=== PATIENT | male | born 1935 | race Caucasian/White ===

== ENCOUNTER → 2020-09-16 15:25 | Outpatient (CLI) | payer MEDICARE, OTHER, SELFPAY ==
[2020-09-16 15:37] LABS: Bacteria 0 SEEN /hpf (None Seen); White Blood Cells 0 SEEN /hpf (0-5)
[2020-09-16 18:13] LABS: Absolute Lymphocyte Count 0.74 X10^3/uL (0.83-4.51); Absolute Neutrophil Count 13.3 X10^3/uL (2.0-7.7); Basophil# 0.02 X10^3/uL; Basophil% 0.1 % (0-1); Hematocrit 45.9 % (40-54); Hemoglobin 16.1 g/dL (13.0-16.5); Lymphocyte # 0.74 X10^3/ul (0.83-4.51); Lymphocyte % 4.8 % (19-41); Mean Corp Hgb Conc 35.1 g/dL (32-36); Mean Corpuscular Hgb 31.1 pg (27.0-32.0); Mean Corpuscular Volume 88.6 fL (80-94); Mean Platelet Vol. 10.3 fl (6.2-12.0); Monocyte# 1.25 X10^3/uL; Monocyte% 8.2 % (0-10); NRBC Flagged by Analyzer 0 % (0-5); Neutrophil # 13.25 X10^3/uL (2.7-7.7); Neutrophil % 86.5 % (47-70); Platelet Count 220 K/mm3 (150-450); RBC Distribution Width CV 13.5 % (11.6-14.6); RBC Distribution Width SD 44.1 fl (35.1-43.9); Red Blood Count 5.18 M/mm3 (4.6-6.2); White Blood Count 15.3 K/mm3 (4.4-11.0)
[2020-09-16 18:15] LABS: Color, Urine Yellow (Yellow); Glucose, Dipstick Normal (Normal); Ketone-Dipstick 15 mg/dl (Negative); Leukocyte Esterase-Dipstick 25 /ul (Negative); Nitrite-Dipstick Negative (Negative); Occult Blood-Urine 25 /ul (Negative); Protein-Dipstick 30 mg/dl (Negative); Urine Bilirubin Dipstick Negative (Negative); Urine Clarity Clear (Clear); Urine Urobilinogen 1 mg/dl (Normal)
[2020-09-16 18:24] LABS: Mucous, Urine 2+ /hpf (<or=2+); Red Blood Cells-Urine 0-5 SEEN /hpf (0-5); Squamous Epithelial Cells - UA 0-5 SEEN /hpf (0-5)
[2020-09-16 18:38] LABS: ALB/GLOB Ratio 1.2 RATIO (0.9-2.4); AST(SGOT) 20 U/L (15-37); Alanine Aminotransfer ALT/SGPT 25 U/L (16-61); Albumin, Serum 4.2 g/dL (3.2-5.0); Alkaline Phosphatase 63 U/L (45-117); Amylase 20 U/L (25-115); Anion Gap 11 (5-15); BUN 17 mg/dL (7-18); BUN/Creat Ratio 20.6 RATIO (10-20); Calcium,Total 9.3 mg/dL (8.5-10.1); Chloride 103 mmol/L (98-107); Creatinine, Serum 0.82 mg/dL (0.70-1.30); EST Glomerular Filtration Rate 95 mL/min (>60); Est Glom Filt Rate - Afr Amer 115 mL/min (>60); Globulin 3.4 g/dL (2.2-4.2); Glucose 134 mg/dL (74-106); Lipase 65 U/L (73-393); Potassium 3.9 mmol/L (3.5-5.1); Protein, Total 7.6 g/dL (6.4-8.2); Sodium Level 134 mmol/L (136-145)
[2020-09-16 18:43] LABS: Erythrocyte Sedimentation Rate 10 mm/hr (0-20)
== END ==
PROVIDERS: PCP Internal Medicine; Referring Provider Internal Medicine; Visit Provider Internal Medicine
DX: R10.84 Generalized abdominal pain (principal)
CPT/HCPCS: 36415; 80053; 81001; 82150; 83690; 85025; 85652

== ENCOUNTER 2020-09-18 05:41 | Inpatient (IN) | payer MEDICARE, OTHER, SELFPAY ==
[2020-09-18] VITALS (15 sets, daily range): BP systolic 116–143; BP diastolic 55–82; PULSE 86–108; RESP 16–18; TEMP 35.7–36.9; O2SAT 91–96; BMI 25.4
--- NOTE | 2020-09-18 05:42 | CT_ITS ---
We are attempting to reach an attending provider to discuss findings. An addendum with communication details will be sent when the communication is complete. HISTORY: SBO TECHNIQUE: Multiple axial images were obtained of the abdomen and pelvis without oral or IV contrast. Coronal and sagittal reformats obtained. A radiation dose optimization technique was used for this scan. COMPARISON: Left abdominal radiograph 09/16/2020 FINDINGS: # of images incl. paperwork: 531 LUNG BASES: Unremarkable. LIVER T BILIARY TRACT: Cholelithiasis without gallbladder distention or surrounding inflammation. Left hepatic cysts up to 2.1 cm in size. ADRENAL GLANDS: Unremarkable. SPLEEN: Calcified sequela of prior granulomatous disease. PANCREAS: Unremarkable. KIDNEYS/URETERS/BLADDER: Left renal 4.4 cm exophytic cyst. Nonobstructive 2- 3 mm bilateral renal stones. No hydronephrosis or perinephric inflammation. Unremarkable ureters and bladder. LYMPH NODES: No suspicious adenopathy. STOMACH, SMALL AND LARGE BOWEL: No acute gastric finding. Large left inguinal hernia containing small bowel and fat with mild inflammatory stranding. Distention of small proximal to entering the hernia up to 4.4 cm. Distention of small bowel within the hernia to 3.2 cm with decompression prior to exiting. Appendix is not seen. No right lower quadrant inflammatory change to suggest appendicitis. No acute colonic finding. No pneumatosis. ASCITES/FREE AIR: No free fluid or free air. AORTA: Atherosclerosis without ectasia. PELVIS: Prostate 5.6 cm transverse. MUSCULOSKELETAL: No acute osseous finding. Small fat-containing right inguinal hernia without inflammation. Left iliac bone island. CT/Abdomen/Pelvis without Cont IMPRESSION: Small bowel obstruction proximal to small bowel entering a large left inguinal hernia. Distention of small bowel with mild inflammation within left inguinal hernia concerning for incarceration and closed loop obstruction. Recommend surgical consultation. Nonobstructive nephrolithiasis. Cholelithiasis. Individualized dose optimization techniques were used for this CT. at 0644 Reported and signed by: Jah Garner MD Electronically Signed: Jah Garner MD at 6:42 EDT Tel , Service support ,
[2020-09-18] MEDS: 0.9% Normal Saline 1,000 ML 1000 ML IV (05:48)
[2020-09-18] MEDS: Ondansetron 4 MG/2 ML Vial IV ×2 (05:48→12:37)
[2020-09-18 05:52] LABS: Absolute Lymphocyte Count 0.71 X10^3/uL (0.83-4.51); Absolute Neutrophil Count 6.8 X10^3/uL (2.0-7.7); Basophil# 0.05 X10^3/uL; Basophil% 0.5 % (0-1); Eosinophil# 0.06 X10^3/uL; Eosinophils% 0.6 % (0-5); Hematocrit 48.5 % (40-54); Hemoglobin 16.7 g/dL (13.0-16.5); Lymphocyte # 0.71 X10^3/ul (0.83-4.51); Mean Corp Hgb Conc 34.4 g/dL (32-36); Mean Corpuscular Hgb 30.8 pg (27.0-32.0); Mean Corpuscular Volume 89.5 fL (80-94); Mean Platelet Vol. 9.9 fl (6.2-12.0); Monocyte# 2.43 X10^3/uL; NRBC Flagged by Analyzer 0 % (0-5); Neutrophil # 6.82 X10^3/uL (2.7-7.7); Neutrophil % 67.4 % (47-70); POSITIVE DIFFERENTIAL YES; POSITIVE MORPHOLOGY YES; Platelet Count 237 K/mm3 (150-450); RBC Distribution Width CV 13.7 % (11.6-14.6); RBC Distribution Width SD 44.7 fl (35.1-43.9); Red Blood Count 5.42 M/mm3 (4.6-6.2); White Blood Count 10.1 K/mm3 (4.4-11.0)
--- NOTE | 2020-09-18 05:53 | EDS_ITS ---
HPI HPI - GI History of Present Illness Chief Complaint: Nausea/Vomiting Narrative Narrative: Patient presenting for evaluation secondary to some abdominal discomfort nausea and vomiting. Patient states that on Tuesday of this week he started having nausea and vomiting. He was having a couple episodes per day. Saw his primary care had laboratory work-up and an x-ray, he has not received results of that yet but they recommended that he come to the emergency d epartment. Patient states that he has not vomited since last night, it is nonbloody. He states that he has been dealing with some constipation and decreased flatus. He reports some intermittent crampy abdominal pain, nothing currently. Denies any fevers. He does have a history of multiple abdominal surgeries in the past. Review of systems otherwise negative. [facility] Medical History (Updated 09/18/20 @ 07:[address] Art Jack MD) High cholesterol History of spontaneous rupture of esophagus Hypertension Home Medications ascorbic acid (vitamin C) [Didi Hips (vitamin C)] 100 mg PO DAILY 09/18/20 [History Last Taken Unknown] aspirin 81 mg PO DAILY 09/18/20 [History Last Taken Unknown] calcium carbonate-vitamin D2 [Calcium + Vitamin D] 1 tab PO DAILY 09/18/20 [History Last Taken Unknown] flaxseed 1,000 mg PO DAILY 09/18/20 [History Last Taken Unknown] nortriptyline 25 mg PO QHS 09/18/20 [History Last Taken Unknown] olmesartan [Benicar] 40 mg PO DAILY 09/18/20 [History Last Taken Unknown] omega 9-tbg-gjv-fish oil [Fish Oil] 1 cap PO DAILY 09/18/20 [History Last Taken Unknown] rosuvastatin 20 mg PO DAILY 09/18/20 [History Last Taken Unknown] tamsulosin 0.4 mg PO QHS 09/18/20 [History Last Taken Unknown] Allergy/AdvReac Type Severity Reaction Status Date / Time No Known Allergies Allergy Verified 09/18/20 05:48 Surgical History History of appendectomy History of hernia repair Social History Smoking Status: Former smoker ROS ROS ED Constitutional Constitutional ED: Denies chills or fever(s) ENT ENT ED: Denies sore throat Cardiovascular Cardiovascular: Denies chest pain Respiratory/Chest Respiratory/Chest: Denies cough or dyspnea Gastrointestinal Gastrointestinal: Reports abdominal pain, constipation, nausea and vomiting; Denies diarrhea Genitourinary Genitourinary ED: Denies dysuria, hematuria or urinary frequency Musculoskeletal Musculoskeletal: Denies myalgias Integumentary Denies rash Neurologic Neurologic: Denies paresthesias or weakness Psychiatric Psychiatric: Denies depression Endocrine Endocrinology: Denies polyuria Hematologic/Lymphatic Hematologic/Lymphatic: Denies easy bleeding or easy bruising Allergic/Immunologic Allergic/Immunologic ED: Denies urticaria EXAM Physical Exam Const Vital Signs: 09/18/20 05:42 Temperature 96.3 F L Temperature Source Temporal Pulse Rate 108 H Respiratory Rate 16 Blood Pressure 140/82 H Blood Pressure Mean 101 Pulse Ox 94 Oxygen Delivery Method Room Air Positive well nourished and well developed General Appearance ED: well developed and NAD HEENT Reports dry mucous membranes normocephalic and atraumatic Mouth ED: Yes dry mucous membranes Mouth: dry mucous membranes Eyes EOMs intact bilaterally General Eye ED: Negative for pale conjunctiva or scleral icterus Neck no lymphadenopathy and supple Resp clear to auscultation bilaterally Resp Narrative: Mild tachypnea Cardio regular rhythm, no murmurs and peripheral pulses 2+ throughout Cardio Narrative: 2+ radial pulses bilaterally symmetric Rate: tachycardic GI non-tender, non-distended and no masses GI Narrative: No increased tympany noted Palpation: soft; Negative for guarding, rigid or rebound tenderness present Narrative: Very large left-sided inguinal hernia that is not necessarily tender to palpation no overlying skin changes Back/Spine no CVA tenderness Extremity full ROM General Extremety ED: Negative for edema General Extremity: Negative for edema Neuro moves all extremities and no sensory deficits noted Sensorium / Orientation: alert, oriented to person, oriented to place and oriented to time Motor Exam: strength 5/5 throughout Psych mental status grossly normal Skin Rashes: no rashes MDM MDM MDM Narrative Medical decision making narrative: Patient presented with abdominal pain nausea and vomiting. I reviewed the patient's prior records, his abdominal x-ray does shows bowel distention with air-fluid levels. As well as having a white blood cell count of 15,000. IV was established laboratory studies were obtained. Patient had improvement of his white blood cell count down to 10,000. Chemistry shows normal renal function no significant electrolyte derangements lactic acid was modestly elevated at 3.0. CT abdomen and pelvis was performed which shows a small bowel obstruction just proximal to where the small bowel enters a large left inguinal hernia as well as showing inflammation within the hernia concerning for incarceration and a closed-loop obstruction. I discussed this with Dr. Zacarias, surgery who will evaluate the patient at the bedside. Patient will be admitted for surgical intervention. Lab Data Labs: Laboratory Results - last 24 hr 09/18/20 09/18/20 09/18/20 05:45 05:45 05:45 WBC 10.1 RBC 5.42 Hgb 16.7 H Hct 48.5 MCV 89.5 MCH 30.8 MCHC 34.4 RDW Std Deviation 44.7 H RDW Coeff of Lynette 13.7 Plt Count 237 MPV 9.9 Immature Gran % (Auto) 0.500 Neut % (Auto) 67.4 Lymph % (Auto) 7.0 L Villalba % (Auto) 24.0 H Eos % (Auto) 0.6 Baso % (Auto) 0.5 Absolute Neuts (auto) 6.8 Absolute Lymphs (auto) 0.71 L Nucleated RBC % 0 Differential Comment SCANNED Sodium Cancelled Potassium Cancelled Chloride Cancelled Carbon Dioxide Cancelled Anion Gap Cancelled BUN Cancelled Creatinine Cancelled Estim Creat Clear Calc Cancelled Est GFR (MDRD) Af Amer Cancelled Est GFR (MDRD) Non-Af Cancelled BUN/Creatinine Ratio Cancelled Glucose Cancelled Lactic Acid Cancelled Calcium Cancelled Total Bilirubin Cancelled AST Cancelled ALT Cancelled Alkaline Phosphatase Cancelled Total Protein Cancelled Albumin Cancelled Globulin Cancelled Albumin/Globulin Ratio Cancelled Lipase Cancelled 09/18/20 09/18/20 06:05 06:18 WBC RBC Hgb Hct MCV MCH MCHC RDW Std Deviation RDW Coeff of Lynette Plt Count MPV Immature Gran % (Auto) Neut % (Auto) Lymph % (Auto) Villalba % (Auto) Eos % (Auto) Baso % (Auto) Absolute Neuts (auto) Absolute Lymphs (auto) Nucleated RBC % Differential Comment Sodium 134 L Potassium 4.1 Chloride 102 Carbon Dioxide 21.0 Anion Gap 11 BUN 39 H Creatinine 1.27 Estim Creat Clear Calc 46.30 Est GFR (MDRD) Af Amer 70 Est GFR (MDRD) Non-Af 58 L BUN/Creatinine Ratio 30.7 H Glucose 151 H Lactic Acid 3.0 H* Calcium 8.6 Total Bilirubin 1.30 H AST 33 ALT 40 Alkaline Phosphatase 61 Total Protein 7.1 Albumin 3.6 Globulin 3.5 Albumin/Globulin Ratio 1.0 Lipase 48 L Radiography Diagnostic Testing: Radiology Impression Abdomen/Pelvis CT 09/18/20 05:42 IMPRESSION: Small bowel obstruction proximal to small bowel entering a large left inguinal hernia. Distention of small bowel with mild inflammation within left inguinal hernia concerning for incarceration and closed loop obstruction. Recommend surgical consultation. Nonobstructive nephrolithiasis. Cholelithiasis. Individualized dose optimization techniques were used for this CT. at 0644 Reported and signed by: Jah Garner MD Electronically Signed: Jah Garner MD at 6:42 EDT Tel , Service support , ADDENDUM: 09/18/20 0653 IMPRESSION: Small bowel obstruction proximal to small bowel entering a large left inguinal hernia. Distention of small bowel with mild inflammation within left inguinal hernia concerning for incarceration and closed loop obstruction. Recommend surgical consultation. Nonobstructive nephrolithiasis. Cholelithiasis. Individualized dose optimization techniques were used for this CT. at 0644 Reported and signed by: Jah Garner MD N.B. : The above Results were Read Back by Jah Garner MD to Art Jack MD, and understanding confirmed on 09/18/2020 06:46:34 (ET). Electronically Signed: Jah Garner MD at 6:42 EDT Tel , Service support , Critical Care Time Critical care time (excluding procedures): 30-74 minutes, Discussing w/Patient &/or Family/Oracle Soa Developer, Discussing w/Consultants and Arranging Admission or Transfer Discharge Plan Triage Chief Complaint: Nausea/Vomiting Other Complaint: Abd Pain ED Provider: Art Jack Dx/Rx/DC Orders Clinical Impression: SBO (small bowel obstruction), Incarcerated hernia Primary Care Provider: Rhona Goldman Attending Provider: Devon Zacarias Disposition Disposition: Acute Care Hospital [facility] [place] [facility]
[2020-09-18 05:57] LABS: Differential Indicated SCAN CRITERIA MET
[2020-09-18 06:32] LABS: Differential Comment SCANNED
[2020-09-18 06:41] LABS: AST(SGOT) 33 U/L (15-37); Alanine Aminotransfer ALT/SGPT 40 U/L (16-61); Albumin, Serum 3.6 g/dL (3.2-5.0); Alkaline Phosphatase 61 U/L (45-117); Anion Gap 11 (5-15); BUN 39 mg/dL (7-18); BUN/Creat Ratio 30.7 RATIO (10-20); Calcium,Total 8.6 mg/dL (8.5-10.1); Chloride 102 mmol/L (98-107); Creatinine, Serum 1.27 mg/dL (0.70-1.30); EST Glomerular Filtration Rate 58 mL/min (>60); Est Glom Filt Rate - Afr Amer 70 mL/min (>60); Globulin 3.5 g/dL (2.2-4.2); Glucose 151 mg/dL (74-106); Lipase 48 U/L (73-393); Potassium 4.1 mmol/L (3.5-5.1); Protein, Total 7.1 g/dL (6.4-8.2); Sodium Level 134 mmol/L (136-145)
--- NOTE | 2020-09-18 07:20 | EKG12_ITS ---
Test Reason : PRE OP Blood Pressure : / mmHG Vent. Rate : 100 BPM Atrial Rate : 100 BPM P-R Int : 170 ms QRS Dur : 082 ms QT Int : 320 ms P-R-T Axes : 059 -36 032 degrees QTc Int : 412 ms Normal sinus rhythm Left axis deviation Inferior infarct , age undetermined Abnormal ECG Confirmed by JOSUE COKER, RHONDA ([id number]), editor greeting card BORA MORRIS ([id number]) on 09/23/2020 8:03:01 AM Referred By: VJ Confirmed By:RHONDA SALAS MD
--- NOTE | 2020-09-18 08:00 | HERN_PTH ---
PATIENT: KRISTIN GORMAN LOC: MS3 U#:[id number] AGE/SX: 84/M ROOM: DC322 RE09/19/[address]: Dr. Devon Zacarias MD : [id number] BED: 1 DIS: 09/21/2020 SPEC #: [id number] RECD: 09/18/20 10:19 STATUS: LILY OBDULIO #: [id number] CHARLES: 09/18/20 08:[address]: Devon Zacarias DEPT: SURGICAL PATHOLOGY RECD BY: Chata Mosquera ENTERED: 09/18/20 10:47 SP TYPE: Hernia OTHR DR: Dr. Rhona Goldman, DO Tissues: A - HERNIA B - LIPOMA OF CORD Procedures: Surgery Specimen Level II Surgery Specimen Level III HEADER OPERATION: Inguinal hernia, laparotomy, bowel resection PRE-OP DIAGNOSIS: Incarcerated left inguinal hernia and SBO TISSUE SUBMITTED: A ? Hernia sac, B ? Lipoma of left cord MICROSCOPIC DIAGNOSIS A. Hernia sac, herniorrhaphy: Hernia sac with fibrosis with reactive change and mild chronic inflammation. B. Lipoma of cord, excision: Mature adipose tissue consistent with lipoma. AM:maurilio 09/19/2020 MICROSCOPIC DESCRIPTION Slides are reviewed. GROSS DESCRIPTION A - Received in fixative is one container labeled with the patient's name and designated hernia sac. The specimen consists of two glistening fragments of pink-barclay saccular tissue measuring 15 x 5 x 1 cm. Serial sections do not reveal mass lesions. Ceramic Worker sections are submitted in one cassette. B - Received in fixative is one container labeled with the patient's name and designated lipoma left cord. The specimen consists of a lobular fragment of yellow fatty tissue measuring 5.5 x 5 x 1.7 cm. Serial sections reveal homogenous yellow cut surfaces without areas of cyst formation, necrosis or hemorrhage. Ceramic Worker sections are submitted in one cassette. / AM:maurilio 09/18/20 TC:3 CPT: 97467, 66754
--- NOTE | 2020-09-18 08:04 | HP.PCM.SX_ITS ---
HPI - General HPI Narrative KRISTIN GORMAN, is a 84 M who presents to the emergency room with abdominal pain and nausea and vomiting. This has been going on for 4 days. The patient reports lower abdominal pain. The patient was seen by his PCP and labs and x- ray were ordered which indicated small bowel obstruction 2 days ago. The patient presented this morning. The patient notes that he has had 2 left inguinal hernia repairs in the past. He has had bulging for several years. [facility] Medical History (Updated 09/18/20 @ 08:[address] Devon Zacarias MD) High cholesterol History of spontaneous rupture of esophagus Hypertension Home Medications ascorbic acid (vitamin C) [Didi Hips (vitamin C)] 100 mg PO DAILY 09/18/20 [History Last Taken Unknown] aspirin 81 mg PO DAILY 09/18/20 [History Last Taken Unknown] calcium carbonate-vitamin D2 [Calcium + Vitamin D] 1 tab PO DAILY 09/18/20 [History Last Taken Unknown] flaxseed 1,000 mg PO DAILY 09/18/20 [History Last Taken Unknown] nortriptyline 25 mg PO QHS 09/18/20 [History Last Taken Unknown] olmesartan [Benicar] 40 mg PO DAILY 09/18/20 [History Last Taken Unknown] omega 5-mbe-hrg-fish oil [Fish Oil] 1 cap PO DAILY 09/18/20 [History Last Taken Unknown] rosuvastatin 20 mg PO DAILY 09/18/20 [History Last Taken Unknown] tamsulosin 0.4 mg PO QHS 09/18/20 [History Last Taken Unknown] Allergy/AdvReac Type Severity Reaction Status Date / Time No Known Allergies Allergy Verified 09/18/20 05:48 Surgical History History of appendectomy History of hernia repair Social History Smoking Status: Former smoker ROS Constitutional Constitutional: Denies anorexia or fatigue Cardiovascular Cardiovascular: Denies chest pain Respiratory/Chest Respiratory/Chest: Denies cough or dyspnea Gastrointestinal Gastrointestinal: Reports abdominal pain, nausea and vomiting; Denies diarrhea or melena Musculoskeletal Musculoskeletal: Denies abnormal gait Integumentary Integumentary: Denies jaundice Neurologic Neurologic: Denies abnormal gait Psychiatric Psychiatric: Denies anxiety Hematologic/Lymphatic Hematologic/Lymphatic: Denies easy bleeding Vital Signs Vital Signs Vital Signs: 09/18/20 05:42 09/18/20 07:43 Temperature 96.3 F L 96.3 F L Temperature Source Temporal Temporal Pulse Rate 108 H 104 H Respiratory Rate 16 18 Blood Pressure 140/82 H 143/73 H Blood Pressure Mean 101 96 Pulse Ox 94 95 Oxygen Delivery Method Room Air Room Air Weight Weight: 177 lb 0.499 oz Body Mass Index (BMI) 25.4 Physical Exam Const alert, oriented x3 and no apparent distress HEENT normocephalic Eyes PERRL Neck full ROM Chest inspection of chest normal Resp normal respiratory effort and normal air movement Cardio regular rate and regular rhythm GI soft to palpation and non-distended GI Narrative: Large nonreducible left inguinal hernia Extremity full ROM Skin no rashes or lesions noted Results Lab / Micro Data Result Diagrams: 09/18/20 05:45 09/18/20 06:05 Labs: Laboratory Results - last 24 hr 09/18/20 09/18/20 09/18/20 05:45 05:45 05:45 WBC 10.1 RBC 5.42 Hgb 16.7 H Hct 48.5 MCV 89.5 MCH 30.8 MCHC 34.4 RDW Std Deviation 44.7 H RDW Coeff of Lynette 13.7 Plt Count 237 MPV 9.9 Immature Gran % (Auto) 0.500 Neut % (Auto) 67.4 Lymph % (Auto) 7.0 L Troup % (Auto) 24.0 H Eos % (Auto) 0.6 Baso % (Auto) 0.5 Absolute Neuts (auto) 6.8 Absolute Lymphs (auto) 0.71 L Nucleated RBC % 0 Differential Comment SCANNED Sodium Cancelled Potassium Cancelled Chloride Cancelled Carbon Dioxide Cancelled Anion Gap Cancelled BUN Cancelled Creatinine Cancelled Estim Creat Clear Calc Cancelled Est GFR (MDRD) Af Amer Cancelled Est GFR (MDRD) Non-Af Cancelled BUN/Creatinine Ratio Cancelled Glucose Cancelled Lactic Acid Cancelled Calcium Cancelled Total Bilirubin Cancelled AST Cancelled ALT Cancelled Alkaline Phosphatase Cancelled Total Protein Cancelled Albumin Cancelled Globulin Cancelled Albumin/Globulin Ratio Cancelled Lipase Cancelled 09/18/20 09/18/20 06:05 06:18 WBC RBC Hgb Hct MCV MCH MCHC RDW Std Deviation RDW Coeff of Lynette Plt Count MPV Immature Gran % (Auto) Neut % (Auto) Lymph % (Auto) Troup % (Auto) Eos % (Auto) Baso % (Auto) Absolute Neuts (auto) Absolute Lymphs (auto) Nucleated RBC % Differential Comment Sodium 134 L Potassium 4.1 Chloride 102 Carbon Dioxide 21.0 Anion Gap 11 BUN 39 H Creatinine 1.27 Estim Creat Clear Calc 46.30 Est GFR (MDRD) Af Amer 70 Est GFR (MDRD) Non-Af 58 L BUN/Creatinine Ratio 30.7 H Glucose 151 H Lactic Acid 3.0 H* Calcium 8.6 Total Bilirubin 1.30 H AST 33 ALT 40 Alkaline Phosphatase 61 Total Protein 7.1 Albumin 3.6 Globulin 3.5 Albumin/Globulin Ratio 1.0 Lipase 48 L Micro: Microbiology 09/18/20 07:25 SARS-CoV-2 Antigen (Rapid) - Final Mucosa - Nose Radiology Impression Abdomen/Pelvis CT 09/18/20 05:42 IMPRESSION: Small bowel obstruction proximal to small bowel entering a large left inguinal hernia. Distention of small bowel with mild inflammation within left inguinal hernia concerning for incarceration and closed loop obstruction. Recommend surgical consultation. Nonobstructive nephrolithiasis. Cholelithiasis. Individualized dose optimization techniques were used for this CT. at 0644 Reported and signed by: Jah Garner MD Electronically Signed: Jah Garner MD at 6:42 EDT Tel , Service support , ADDENDUM: 09/18/20 0653 IMPRESSION: Small bowel obstruction proximal to small bowel entering a large left inguinal hernia. Distention of small bowel with mild inflammation within left inguinal hernia concerning for incarceration and closed loop obstruction. Recommend surgical consultation. Nonobstructive nephrolithiasis. Cholelithiasis. Individualized dose optimization techniques were used for this CT. at 0644 Reported and signed by: Jah Garner MD N.B. : The above Results were Read Back by Jah Garner MD to Art Jack MD, and understanding confirmed on 09/18/2020 06:46:34 (ET). Electronically Signed: Jah Garner MD at 6:42 EDT Tel , Service support , Assessment & Plan Assessment/Plan (1) Incarcerated left inguinal hernia: (2) SBO (small bowel obstruction): PLAN: The patient had a CT scan which shows a large left inguinal hernia with signs of inflammation and bowel obstruction. The left inguinal hernia is extremely large and contain segments of his colon as well as small bowel. The hernia was unable to be reduced. The patient had x-ray 2 days ago which showed signs of small bowel obstruction with a white count of 15. He presented this morning to the emergency room. I discussed surgery with the patient. I would take the patient for emergent surgery as he has signs of bowel obstruction and inflammation in the hernia. CT shows fluid and inflammation around the small bowel segment in the left inguinal hernia. The patient has had 2 left inguinal hernia repairs in the past. The surgery was discussed in depth with the patient and his . I discussed open left inguinal hernia repair with mesh. I also discussed the possibility of bowel resection or need for laparotomy. I also discussed the risks of bleeding, infection, need for scrotal drainage, injury to spermatic cord, chronic groin pain. Patient understands the risks and is willing to proceed. Devon Zacarias MD Pager: [facility] [address] [place] [address], [address] [place] [address] Office:
[2020-09-18] MEDS: Lactated Ringers 1,000 ML 100 ML IV (08:12)
[2020-09-18] MEDS: Bupivacaine Mpf 0.5% 30 ML VIAL (09:02)
[2020-09-18] MEDS: 0.9% Normal Saline 1,000 ML 100 ML IV ×3 (09:30→20:50)
[2020-09-18 10:22] LABS: Reflex Lactate? Y
--- NOTE | 2020-09-18 10:44 | PCM.OPRPT ---
Problems Associated Problem List Diagnoses (1) Incarcerated left inguinal hernia: (2) SBO (small bowel obstruction): Report of Operation Date of Procedure: 09/18/20 Pre-Operative Diagnosis: Incarcerated left inguinal hernia causing bowel obstruction Post-Operative Diagnosis: Same Surgery/Procedure Performed:: Left inguinal hernia repair with mesh Surgeon: Devon Zacarias senior technical project manager: Art Hannon Specimen's removed: Hernia sac and cord lipoma Description of Procedure: Patient was brought back to the operating room and general anesthesia was induced. The abdomen and scrotum were prepped and draped in the usual sterile fashion. An incision was made in the left lower quadrant and deepened to the external aponeurosis and this was incised and the hernia sac was identified and dissected free. The hernia sac was elevated and incised and the scrotal contents were identified. The distended small bowel was delivered into the incision and there appeared to be a band causing a small bowel traction. The band was lysed. There was a transition point that did not appear to be strictured and it was viable. The bowel was reduced back into the abdomen. The colon was also incorporated into the hernia sac. The hernia sac was closed with a pursestring 0 silk suture. It was reduced into the abdomen. The spermatic cord was identified and elevated with a Edgard drain and the testicle was identified. There was a small lipoma of the spermatic cord which was removed with electrocautery. The testicle was placed back into the scrotum and acute keyhole Bard mesh was placed into the inguinal canal and tacked to the pubic tubercle using 2-0 PDS suture. The mesh was tacked to the shelving portion of the inguinal ligament using interrupted PDS sutures. The mesh was then tacked to the conjoined tendon using interrupted PDS sutures. The tails were wrapped around the spermatic cord and tied together using PDS suture leaving a left room for the fingertip of the pinky finger to be placed alongside the cord. The scrotum was irrigated and suctioned dry and the testicles placed back into the scrotum and the inguinal cord was laid into the inguinal canal. The external aponeurosis was then closed using running 3-0 Vicryl suture. The Gloria's fascia was closed using interrupted 3-0 Vicryl sutures. The skin was injected with local anesthetic and closed with 4-0 Monocryl suture and glue was applied. A supportive underwear was placed on the patient and then the patient was awoken and taken to PACU in stable condition. Patient tolerated the procedure well. Grafts/Implants Used: Bard keyhole mesh Admit VTE Documentation VTE Mechan Device Prophylaxis: SCD's
[2020-09-18 11:41] LABS: Lactic Acid 2.4 mmol/L (0.4-1.9)
[2020-09-18] MEDS: 0.9% Saline Lock 10 ML Syringe IV (12:36)
[2020-09-18] MEDS: Morphine 2 MG/ML Syringe IV (12:38)
[2020-09-18] MEDS: Pantoprazole Sodium 40 MG Tablet PO (14:57)
[2020-09-18] MEDS: Tamsulosin HCl 0.4 MG Capsule PO (20:50)
[2020-09-18] MEDS: Nortriptyline 25 MG Capsule PO (20:51)
[2020-09-18] MEDS: Atorvastatin Calcium 40 MG Tablet PO (20:51)
[2020-09-19 01:50] VITALS: BP 110/64; PULSE 100; RESP 16; TEMP 37; O2SAT 95
[2020-09-19] MEDS: 0.9% Normal Saline 1,000 ML 100 ML IV (05:27)
[2020-09-19 06:45] LABS: Absolute Lymphocyte Count 1.03 X10^3/uL (0.83-4.51); Absolute Neutrophil Count 6.1 X10^3/uL (2.0-7.7); Basophil# 0.02 X10^3/uL; Basophil% 0.2 % (0-1); Eosinophil# 0.05 X10^3/uL; Eosinophils% 0.6 % (0-5); Hematocrit 33.4 % (40-54); Lymphocyte # 1.03 X10^3/ul (0.83-4.51); Lymphocyte % 12.1 % (19-41); Mean Corp Hgb Conc 32.9 g/dL (32-36); Mean Corpuscular Hgb 30.7 pg (27.0-32.0); Mean Corpuscular Volume 93.3 fL (80-94); Mean Platelet Vol. 10.2 fl (6.2-12.0); Monocyte# 1.34 X10^3/uL; Monocyte% 15.7 % (0-10); NRBC Flagged by Analyzer 0 % (0-5); Neutrophil # 6.06 X10^3/uL (2.7-7.7); Neutrophil % 70.9 % (47-70); POSITIVE MORPHOLOGY YES; Platelet Count 186 K/mm3 (150-450); RBC Distribution Width CV 14.2 % (11.6-14.6); RBC Distribution Width SD 48.5 fl (35.1-43.9); Red Blood Count 3.58 M/mm3 (4.6-6.2); White Blood Count 8.5 K/mm3 (4.4-11.0)
[2020-09-19 06:57] LABS: Anion Gap 8 (5-15); BUN 43 mg/dL (7-18); BUN/Creat Ratio 33.9 RATIO (10-20); Calcium,Total 7.6 mg/dL (8.5-10.1); Chloride 106 mmol/L (98-107); Creatinine, Serum 1.27 mg/dL (0.70-1.30); EST Glomerular Filtration Rate 58 mL/min (>60); Est Glom Filt Rate - Afr Amer 70 mL/min (>60); Glucose 110 mg/dL (74-106); Potassium 3.9 mmol/L (3.5-5.1); Sodium Level 136 mmol/L (136-145)
[2020-09-19 07:00] LABS: Differential Indicated SCAN CRITERIA MET
[2020-09-19 07:14] LABS: Differential Comment SCANNED
--- NOTE | 2020-09-19 07:41 | PN.SURG_ITS ---
Subjective Subjective The patient says that he is feeling like he is going to pass gas soon. He did not have any nausea vomiting and his abdominal pain is well controlled. No pain in the groin or scrotum. Objective Data Objective Data Vital Signs: Vital Signs Temp Pulse Resp BP Pulse Ox 98.6 F 100 16 110/64 95 09/19/20 01:50 09/19/20 01:50 09/19/20 01:50 09/19/20 01:50 09/19/20 01:50 Oxygen Flow Rate (L/min) 2 Oxygen Delivery Method Room Air Weight: 177 lb 0.499 oz Body Mass Index (BMI) 25.4 Intake & Output: Intake and Output for Last 24 Hours 09/17/20 09/18/20 09/19/20 23:59 23:59 23:59 Intake Total 3921.67 / 3971.67 971.67 / 971.67 Output Total 150 / 450 675 / 675 Balance 3771.67 / 3521.67 296.67 / 296.67 Lab / Micro Data Result Diagrams: 09/19/20 06:18 09/19/20 06:18 Labs: Laboratory Results - last 24 hr 09/18/20 09/19/20 09/19/20 11:01 06:18 06:18 WBC 8.5 RBC 3.58 L Hgb 11.0 L Hct 33.4 L MCV 93.3 MCH 30.7 MCHC 32.9 RDW Std Deviation 48.5 H RDW Coeff of Lynette 14.2 Plt Count 186 MPV 10.2 Immature Gran % (Auto) 0.500 Neut % (Auto) 70.9 H Lymph % (Auto) 12.1 L Manati % (Auto) 15.7 H Eos % (Auto) 0.6 Baso % (Auto) 0.2 Absolute Neuts (auto) 6.1 Absolute Lymphs (auto) 1.03 Nucleated RBC % 0 Differential Comment SCANNED Sodium 136 Potassium 3.9 Chloride 106 Carbon Dioxide 22.0 Anion Gap 8 BUN 43 H Creatinine 1.27 Estim Creat Clear Calc 46.30 Est GFR (MDRD) Af Amer 70 Est GFR (MDRD) Non-Af 58 L BUN/Creatinine Ratio 33.9 H Glucose 110 H Lactic Acid 2.4 H* Calcium 7.6 L Micro: Microbiology 09/18/20 07:25 Mucosa - Nose SARS-CoV-2 Antigen (Rapid) - Final Physical Exam Const oriented x3 and no apparent distress Resp normal respiratory effort Cardio regular rate and regular rhythm GI soft to palpation and non-tender Assessment & Plan Assessment/Plan (1) Incarcerated left inguinal hernia: (2) SBO (small bowel obstruction): PLAN: Patient seems to be doing well. I will start him on a clear liquid diet and advance as tolerated. Patient may be ready for discharge later today versus tomorrow. Devon Zacarias MD Pager: [facility] [address] [place] [address], [address] [place] [address] Office:
[2020-09-19] MEDS: Aspirin E.C. 81 MG Tablet PO (08:39)
[2020-09-19 08:43] VITALS: BP 92/51; PULSE 109; RESP 18; TEMP 36.5; O2SAT 93
[2020-09-19 10:45] VITALS: BP 91/56; PULSE 110; RESP 18; TEMP 36.5; O2SAT 92
--- NOTE | 2020-09-19 11:00 | CASEMGMT ---
RN ABBI Face to Face with patient for initial transition planning/care coordination assessment. RN CM introduced self and role at [facility]. Patient lying in bed, sleeping, at bedside. willing to participate in assessment and is able to answer all questions appropriately. Care providers, pharmacy, and demographics verified. wishes for patient to discharge home, denies need for home health at this time. states she has no further needs or concerns at this time. CM to follow for discharge planning needs that may arise. PCP: Susi Specialists: none Preferred Pharmacy: [facility] Insurance: [facility] Prescription Benefit: yes Living Will/HPOA: yes, daughter David Nolt HPOA LNOK: Living Arrangements: patient lives with in a single story home with 2 steps and railing to enter the home. Patient is independent at home and was remodeling the basement Transportation: self/ DME/HHC: Patient has shower chair, raised toilet, grab bars, and walker at home. No previous HHC or SNF. Disposition Plan: Patient to discharge home with family support and follow-up plans in place Jerrica BRYANT, RN, CM
[2020-09-19] MEDS: Ascorbic Acid 500 MG Tablet 250 MG PO (12:17)
[2020-09-19] MEDS: Pantoprazole Sodium 40 MG Tablet PO (12:18)
[2020-09-19] MEDS: Menthol/Lanolin/Calamine/Znox 113 GM Tube 1 APPLIC TOPICAL ×2 (12:31→21:27)
[2020-09-19] MEDS: 0.9% Normal Saline 1,000 ML 500 ML IV (13:04)
[2020-09-19] MEDS: Acetaminophen 325 MG Tablet 650 MG PO (14:10)
[2020-09-19 14:24] VITALS: BP 128/55; PULSE 99; RESP 18; TEMP 36.6; O2SAT 96
[2020-09-19] MEDS: 0.9% Normal Saline 1,000 ML 40 ML IV (16:56)
[2020-09-19 17:00] VITALS: BP 113/51; PULSE 92; RESP 18; TEMP 36.7; O2SAT 94
[2020-09-19 21:24] VITALS: BP 143/68; PULSE 93; RESP 18; TEMP 36.3; O2SAT 95
[2020-09-19] MEDS: Tamsulosin HCl 0.4 MG Capsule PO (21:27)
[2020-09-19] MEDS: Nortriptyline 25 MG Capsule PO (21:27)
[2020-09-19] MEDS: Atorvastatin Calcium 40 MG Tablet PO (21:27)
[2020-09-20] MEDS: 0.9% Normal Saline 1,000 ML 40 ML IV (03:45)
[2020-09-20 03:47] VITALS: BP 119/57; PULSE 96; RESP 18; TEMP 36.6; O2SAT 94
--- NOTE | 2020-09-20 07:21 | PN.SURG_ITS ---
Subjective Subjective Patient tolerated clears, started having flatus last night. PT OT has seen patient recommend skilled however case management patient's would like to take him home. Objective Data Objective Data Vital Signs: Vital Signs Temp Pulse Resp BP Pulse Ox 97.8 F 96 18 119/57 L 94 09/20/20 03:47 09/20/20 03:47 09/20/20 03:47 09/20/20 03:47 09/20/20 03:47 Oxygen Flow Rate (L/min) 2 Oxygen Delivery Method Room Air Weight: 177 lb 0.499 oz Body Mass Index (BMI) 25.4 Intake & Output: Intake and Output for Last 24 Hours 09/18/20 09/19/20 09/20/20 23:59 23:59 23:59 Intake Total 3921.67 / 3971.67 3633.34 / 3633.34 672.67 / 672.67 Output Total 150 / 450 1095 / 1095 420 / 420 Balance 3771.67 / 3521.67 2538.34 / 2538.34 252.67 / 252.67 Lab / Micro Data Result Diagrams: 09/19/20 06:18 09/19/20 06:18 Micro: Microbiology 09/18/20 07:25 Mucosa - Nose SARS-CoV-2 Antigen (Rapid) - Final Physical Exam Narrative Abdomen: Soft, nondistended, nontender Left groin incision healing well clean dry and intact resolving ecchymosis, larg e swollen scrotum (improved from before surgery as patient had a very large hernia). Assessment & Plan Assessment/Plan (1) Incarcerated left inguinal hernia: (2) SBO (small bowel obstruction): PLAN: Patient seems to be doing well. Will advance to a regular diet. We will recheck with PT OT/case management to see about patient's disposition to home versus skilled. Marce Estrada M.D. Pager: [phone] [facility] [address] [place] [address], [facility], [address] [place] [id number] Office: [phone]
[2020-09-20 08:49] VITALS: BP 135/58; PULSE 101; RESP 18; TEMP 36.9; O2SAT 94
[2020-09-20] MEDS: Ascorbic Acid 500 MG Tablet 250 MG PO (09:39)
[2020-09-20] MEDS: Menthol/Lanolin/Calamine/Znox 113 GM Tube 1 APPLIC TOPICAL ×2 (09:40→21:42)
[2020-09-20] MEDS: Pantoprazole Sodium 40 MG Tablet PO (09:40)
[2020-09-20] MEDS: Aspirin E.C. 81 MG Tablet PO (09:40)
[2020-09-20] MEDS: Losartan Potassium 100 MG Tablet PO (09:40)
--- NOTE | 2020-09-20 12:25 | CASEMGMT ---
SOCIAL WORK Referral Source: RN Jerrica GO Reason for Consult: Discharge planning- possible need for SNF Met with patient and in room. Introduced role and reason for referral. Patient reports home is one story and prior to hospitalization was independent and active at home. Patient and report patient has been weak and if needed in agreement with rehab. reports would like to see how patient does after getting to eat some meals. Reviewed options and provided and patient with list of SNF's along with home health providers. All questions answered. SW to follow up on Tuesday. Plan: TBD- SNF vs Home Nguyen Connelly MSW, RECRUITING SPECIALIST
[2020-09-20 14:50] VITALS: BP 127/61; PULSE 93; RESP 18; TEMP 36.6; O2SAT 95
[2020-09-20 21:36] VITALS: BP 151/64; PULSE 97; RESP 18; TEMP 36.9; O2SAT 96
[2020-09-20] MEDS: Tamsulosin HCl 0.4 MG Capsule PO (21:42)
[2020-09-20] MEDS: Atorvastatin Calcium 40 MG Tablet PO (21:42)
[2020-09-20] MEDS: Nortriptyline 25 MG Capsule PO (21:42)
[2020-09-21 03:05] VITALS: BP 138/66; PULSE 92; RESP 18; TEMP 37; O2SAT 96
[2020-09-21] MEDS: 0.9% Normal Saline 1,000 ML 40 ML IV (03:09)
--- NOTE | 2020-09-21 06:46 | PN.SURG_ITS ---
Subjective Subjective Patient is tolerating diet passing flatus no bowel movement since Tuesday per patient. Patient is to work on PT OT Objective Data Objective Data Vital Signs: Vital Signs Temp Pulse Resp BP Pulse Ox 98.6 F 92 18 138/66 H 96 09/21/20 03:05 09/21/20 03:05 09/21/20 03:05 09/21/20 03:05 09/21/20 03:05 Oxygen Flow Rate (L/min) 2 Oxygen Delivery Method Room Air Weight: 177 lb 0.499 oz Body Mass Index (BMI) 25.4 Intake & Output: Intake and Output for Last 24 Hours 09/19/20 09/20/20 09/21/20 23:59 23:59 23:59 Intake Total 3633.34 / 3633.34 1672.67 / 1672.67 1286 / 1286 Output Total 1095 / 1095 820 / 820 Balance 2538.34 / 2538.34 852.67 / 852.67 1286 / 1286 Lab / Micro Data Result Diagrams: 09/19/20 06:18 09/19/20 06:18 Micro: Microbiology 09/18/20 07:25 Mucosa - Nose SARS-CoV-2 Antigen (Rapid) - Final Physical Exam Narrative Abdomen: Soft, nondistended, nontender Left groin incision healing well clean dry and intact resolving ecchymosis, large swollen scrotum (improved from before surgery as patient had a very large hernia). Assessment & Plan Assessment/Plan (1) Incarcerated left inguinal hernia: (2) SBO (small bowel obstruction): PLAN: Tolerating regular diet. PT OT does recommend further therapy Case management to discuss with as she would like him to go home. Marce Estrada M.D. Pager: [phone] [facility] [address] [place] [address], [facility], [address] [place] [address] Office: [phone]
--- NOTE | 2020-09-21 08:57 | DS.PCM_ITS ---
Providers Date of Admission: 09/19/20 Primary Care Physician: Dr. Rhona Goldman DO Reason For Visit: BOWEL OBSTRUCTION & HERNIA Diagnosis Discharge Diagnosis (1) Incarcerated left inguinal hernia: Status: Resolved Code(s): K40.30 - Unilateral inguinal hernia, with obstruction, without gangrene, not specified as recurrent (2) SBO (small bowel obstruction): Status: Resolved Code(s): K56.609 - Unspecified intestinal obstruction, unspecified as to partial versus complete obstruction Medications at Discharge Home Medications ascorbic acid (vitamin C) 100 mg PO DAILY 09/18/20 aspirin 81 mg PO DAILY 09/18/20 calcium carbonate-vitamin D2 1 tab PO DAILY 09/18/20 flaxseed 1,000 mg PO DAILY 09/18/20 nortriptyline 25 mg PO QHS 09/18/20 olmesartan [Benicar] 40 mg PO DAILY 09/18/20 omega 6-ief-hoh-fish oil [Fish Oil] 1 cap PO DAILY 09/18/20 rosuvastatin 20 mg PO DAILY 09/18/20 tamsulosin 0.4 mg PO QHS 09/18/20 acetaminophen [Tylenol] 650 mg PO Q4H PRN PRN #0 tab 09/21/20 aspirin 81 mg PO BREAKFAST #0 tab 09/21/20 Hospital Course Operations herniorrhaphy (Left inguinal hernia repair for incarcerated hernia) Procedures None Summary of Care Provided Hospital Course: Patient presented to the ER on 09/18/2020. Patient had a large incarcerated left inguinal hernia which contained bowel. CT abdomen pelvis was concerning for small bowel obstruction. Patient was taken to the OR with Dr. Zacarias. Abdominal contents were reduced back to the abdomen and the left inguinal hernia was repaired. Please see operative note. Postoperatively patient was able to be started on clears which he tolerated then advance to a regular diet. Patient did have postoperatively some swelling/edema in his scrotum as previously it was quite large due to all of the abdominal contents. Patient did undergo evaluation PT OT and patient did well enough to go home without therapy with his , as they do have a walker at home as well. Physical Exam Narrative Abdomen: Soft, nondistended, nontender Left groin incision healing well clean dry and intact resolving ecchymosis, large swollen scrotum (improved from before surgery as patient had a very large hernia). Const alert, oriented x3 and no apparent distress Resp normal respiratory effort Cardio regular rate Weight / BMI Weight Weight: 177 lb 0.499 oz Body Mass Index (BMI) 25.4 ABG / Lab / Microbiology Data Result Diagrams: 09/19/20 06:18 09/19/20 06:18 Microbiology: Microbiology 09/18/20 07:25 Mucosa - Nose SARS-CoV-2 Antigen (Rapid) - Final D/C Instructions Discharge Diet: Light diet - advance as tolerated May shower in (days): 1 Call your doctor if your incision/area has: Continuous Slow Oozing, Sudden Increased Bleeding, Increased Pain/ Swelling, Increased Redness, Foul Smelling D ischarge and Swelling at the incision site Call your doctor if you observe: Fever of 101 or Higher Cleanse incision/area with: Soap & Water Additional Dressing/Incision Instructions: keep scrotum elevated and supportive underwear/jock strap Please Follow Up With: Devon Zacarias MD When: Call the office for a follow-up appointment 2 weeks; after 5 PM and on the weekends call [phone] with any concerns. Meaningful Use Info Meaningful Use Diagnoses (Choose all that apply): None applicable Discharge Plan Admission Admit Date/Time: 09/19/20 15:50 Primary Reason for Your Visit: Incarcerated left inguinal hernia causing bowel obstruction Attending Provider: Devon Zacarias Primary Care Provider: Rhona Goldman Discharge Orders/Prescriptions Prescriptions: New acetaminophen [Tylenol] 325 mg Tablet 650 mg PO Q4H PRN PRN (Reason: pain and/or fever) Qty: 0 RF: 0 aspirin 81 mg Tablet,Delayed Release (Dr/Ec) 81 mg PO BREAKFAST Qty: 0 RF: 0 Continued nortriptyline 25 mg Capsule 25 mg PO QHS RF: 0 tamsulosin 0.4 mg Capsule 0.4 mg PO QHS RF: 0 ascorbic acid (vitamin C) 100 mg Tablet 100 mg PO DAILY RF: 0 aspirin 81 mg Tablet 81 mg PO DAILY RF: 0 calcium carbonate-vitamin D2 600 mg calcium- 200 unit Tablet 1 tab PO DAILY RF: 0 olmesartan [Benicar] 40 mg Tablet 40 mg PO DAILY RF: 0 rosuvastatin 20 mg Tablet 20 mg PO DAILY RF: 0 omega 7-drk-laf-fish oil [Fish Oil] 1,200 (144-216) mg Capsule 1 cap PO DAILY RF: 0 flaxseed 1,000 mg Capsule 1,000 mg PO DAILY RF: 0 Referrals / Follow Up: Rhona Goldman DO [Primary Care Provider] - Disposition Disposition (needs filled in before D/C Order can be placed): Home, Self Care
[2020-09-21 09:10] VITALS: BP 150/76; PULSE 87; RESP 18; TEMP 37.2; O2SAT 98
[2020-09-21] MEDS: Ascorbic Acid 500 MG Tablet 250 MG PO (11:06)
[2020-09-21] MEDS: Aspirin E.C. 81 MG Tablet PO (11:07)
[2020-09-21] MEDS: Pantoprazole Sodium 40 MG Tablet PO (11:07)
[2020-09-21] MEDS: Menthol/Lanolin/Calamine/Znox 113 GM Tube 1 APPLIC TOPICAL (11:07)
[2020-09-21] MEDS: Losartan Potassium 100 MG Tablet PO (11:07)
[2020-09-21] MEDS: Polyethylene Glycol 3350 17 GM PACKET PO (11:11)
--- NOTE | 2020-09-21 12:56 | EX.PCM.DISCH ---
Discharge Instructions Diet Discharge Diet: Light diet - advance as tolerated Activity Discharge Activity: May Not Drive (while taking narcotic pain medications.) May shower in (days): 1 Lifting Restrictions: no lifting >20 lbs x 2 wks, no strenuous exercise for 4 wks Dressing / Incision Call your doctor if your incision/area has: Continuous Slow Oozing, Sudden Increased Bleeding, Increased Pain/ Swelling, Increased Redness, Foul Smelling Discharge and Swelling at the incision site Call your doctor if you observe: Fever of 101 or Higher Cleanse incision/area with: Soap & Water Additional Dressing/Incision Instructions:: keep scrotum elevated and supportive underwear/jock strap Follow Up Care Please Follow Up With: Devon Zacarias MD When: Call the office for a follow-up appointment 2 weeks; after 5 PM and on the weekends call [phone] with any concerns. Test Results: Test results from this visit will be discussed in further detail at your follow-up appointment, if applicable. Discharge Plan Admission Admit Date/Time: 09/19/20 15:50 Attending Provider: Devon Zacarias Primary Care Provider: Rhona Goldman Discharge Orders/Prescriptions Prescriptions: New acetaminophen [Tylenol] 325 mg Tablet 650 mg PO Q4H PRN PRN (Reason: pain and/or fever) Qty: 0 RF: 0 aspirin 81 mg Tablet,Delayed Release (Dr/Ec) 81 mg PO BREAKFAST Qty: 0 RF: 0 Continued nortriptyline 25 mg Capsule 25 mg PO QHS RF: 0 tamsulosin 0.4 mg Capsule 0.4 mg PO QHS RF: 0 ascorbic acid (vitamin C) 100 mg Tablet 100 mg PO DAILY RF: 0 aspirin 81 mg Tablet 81 mg PO DAILY RF: 0 calcium carbonate-vitamin D2 600 mg calcium- 200 unit Tablet 1 tab PO DAILY RF: 0 olmesartan [Benicar] 40 mg Tablet 40 mg PO DAILY RF: 0 rosuvastatin 20 mg Tablet 20 mg PO DAILY RF: 0 omega 4-gkl-fvx-fish oil [Fish Oil] 1,200 (144-216) mg Capsule 1 cap PO DAILY RF: 0 flaxseed 1,000 mg Capsule 1,000 mg PO DAILY RF: 0 Referrals / Follow Up: Rhona Goldman DO [Primary Care Provider] - Disposition Disposition (needs filled in before D/C Order can be placed): Home, Self Care
[2020-09-21 13:27] VITALS: BP 148/77; PULSE 86; RESP 18; TEMP 36.7; O2SAT 96
== END 2020-09-21 14:10 | disposition home or self-care (01) | DRG 352 ==
LOC: ED 07:20 → SDC 07:36 → AC 07:37 → MS3 13:36 → SDC 13:40 → MS3 13:40
PROVIDERS: Admitting Provider Surgery; Emergency Provider Emergency Medicine; PCP Internal Medicine; Visit Provider Surgery
PROC: 0YU60JZ Supplement Left Inguinal Region with Synthetic Substitute, Open Approach (ICD-10-PCS; CPT 49000; principal; 2020-09-18 07:40)
DX: K40.30 Unilateral inguinal hernia, with obstruction, without gangrene, not specified as recurrent (principal); D17.6 Benign lipomatous neoplasm of spermatic cord; E78.00 Pure hypercholesterolemia, unspecified; I10 Essential (primary) hypertension; Z87.891 Personal history of nicotine dependence; Z79.899 Other long term (current) drug therapy; Z79.82 Long term (current) use of aspirin
CPT/HCPCS: 36415; 74176; 80048; 80053; 81001; 82150; 83605; 83690; 85025; 85652; 87426; 88302; 88304; 93005; 97110; 97162; 97166; 97530; 97535; 99251; 99284; J7030; J7120; A4216; C1781; G0463; J2405

== ENCOUNTER → 2020-10-02 10:23 | Outpatient (CLI) | payer MEDICARE, OTHER, SELFPAY ==
[2020-10-02 09:36] VITALS: BMI 25.4
[2020-10-02 10:40] LABS: Mucous, Urine 0 SEEN /hpf (<or=2+); White Blood Cells 0 SEEN /hpf (0-5)
[2020-10-02 11:10] LABS: Color, Urine Yellow (Yellow); Glucose, Dipstick Normal (Normal); Ketone-Dipstick Negative (Negative); Leukocyte Esterase-Dipstick Negative /ul (Negative); Nitrite-Dipstick Negative (Negative); Occult Blood-Urine 10 /ul (Negative); Protein-Dipstick Negative (Negative); Urine Bilirubin Dipstick Negative (Negative); Urine Clarity Sl. Cloudy (Clear); Urine Urobilinogen Normal (Normal); Urine pH 6.5 (5.0 - 8.0)
[2020-10-02 11:18] LABS: Bacteria 1+ /hpf (None Seen); Red Blood Cells-Urine 0-5 SEEN /hpf (0-5); Squamous Epithelial Cells - UA 0-5 SEEN /hpf (0-5)
== END ==
PROVIDERS: PCP Internal Medicine; Referring Provider Physician Assistant; Visit Provider Physician Assistant
DX: R30.0 Dysuria (principal)
CPT/HCPCS: 81001

== ENCOUNTER 2020-10-03 12:19 | Observation (INO) | payer MEDICARE, OTHER, SELFPAY ==
[2020-10-03 08:26] VITALS: BMI 25.4
--- NOTE | 2020-10-03 09:39 | PCM.HP.BLA ---
History and Physical Date of Admission: 10/03/20 Date of Service: 10/03/20 Intake Vital Signs 10/03/20 08:26 BMI 25.4 Intake Visit Reasons: Wound Check Chief Complaint: recheck incision Production Officer Required: No Is patient in pain?: No Allergies No Known Allergies Allergy (Verified 10/02/20 09:36) [facility] Medical History Hematoma High cholesterol History of intestinal obstruction History of spontaneous rupture of esophagus Hypertension Left inguinal hernia Surgical History History of appendectomy History of hernia repair History of left inguinal hernia repair (~09/2020) S/P left inguinal hernia repair (~09/2020) Social History Smoking Status: Former smoker HPI HPI HPI: KRISTIN GORMAN, is a 84 M who presents to the office today for bleeding from left groin incision. Patient previously had an incarcerated left inguinal hernia which was very large which include small bowel and colon. Surgery was about 2 weeks ago. Last week or so patient did have increased swelling at incision. Yesterday did note some leakage from the incision site however that was fairly well controlled but overnight it did continue and patient's call the office. Exam Const General: cooperative, healthy appearing, comfortable and no acute distress Neck Neck: normal visual inspection Resp Effort & Inspection: normal respiratory effort Cardio Rate: regular rate GI Inspection: non-distended Palpation: soft, no guarding and nontender Other: Left groin incision small openings oozing likely old blood from hematoma left groin is quite swollen and firm consistent with hematoma. Left scrotum is also more firm likely due to hematoma. Patient scrotum is quite large overall due to previous hernia with initial seroma after surgery. Neuro General: patient oriented x3 Psych Affect: normal affect COVID (Procedure Consent) Procedure Criteria Procedure Criteria: Yes Elective The surgeon/proceduralist and patient have discussed in detail the risk of exposure to and/or potential harm posed by the COVID-19 virus with having a surgery/procedure at this time versus the risk of delaying the surgery/procedure. It is not possible to know either the risk of delaying the surgery or procedure or chance of getting an infection with perfect accuracy, but a joint decision was made between the patient and the surgeon/proceduralist to proceed at this time with the scheduled surgery/procedure as indicated on the consent form. Assessment and Plan Assessment and Plan (1) Hematoma: Status: Acute (2) Left inguinal hernia: Status: Acute Plan - Dr. Marce Estrada MD: We will plan for evacuation of left groin hematoma in the OR. Patient did just eat at 730 this morning did give him the option of conscious sedation but that would have to wait till 1:30 PM versus 11 AM. Patient is for agreeable for local only in the OR. We will plan to place a drain and likely close incision with permanent sutures. Risks and benefits were discussed with patient and his they understood and elected to proceed. Marce Estrada M.D. Pager: [phone] [facility] [address] [place] [address], [address] [place] [address] Office: [phone] Coding Level of Care Code Global Post Op Diagnoses Hematoma T14.8XXA Left inguinal hernia K40.90 10/03/20 0933<Electronically signed by Marce Estrada MD>Date Marce Estrada MD
[2020-10-03 09:55] VITALS: BP 155/77; PULSE 88; RESP 16; TEMP 37.4; O2SAT 95; BMI 26.5
[2020-10-03] MEDS: Lactated Ringers 1,000 ML 100 ML IV (10:29)
[2020-10-03] MEDS: Cefazolin 2 GM in 0.9% Normal Saline 100 ML IV (11:15)
[2020-10-03] MEDS: Lidocaine 1% /Epi 1:100 (50ml) 50 ML VIAL (11:27)
--- NOTE | 2020-10-03 12:11 | PCM.OPRPT ---
Report of Operation Date of Procedure: 10/03/20 Pre-Operative Diagnosis: Left groin hematoma after previous left inguinal hernia repair Post-Operative Diagnosis: Same Surgery/Procedure Performed:: Evacuation of left groin hematoma Surgeon: Marce Estrada Type of Anesthesia: Local Special Medications: Ancef 2 g IV x1 Drains: 15 Palestinian ANGELA round Estimated Blood Loss (mL): 500cc clot Description of Procedure: Indications: 84-year-old male with recently had left inguinal hernia repair due to a large incarcerated inguinal hernia containing small bowel and colon. Patient had swelling at the incision more recently; previously did have swelling of the scrotum likely seroma after the surgery. The swelling at the incision did cause some oozing over the last couple days. Description: Patient was brought to the operating placed supine on operating table. The left groin/scrotum were prepped draped in usual sterile fashion with Betadine. Only local anesthesia was used. Lidocaine with epinephrine was injected at incision. Previous incision was reincised. There is noted be a large amount of clot which was evacuated for about 500 cc. Most of the clot was at the left groin incision there were some small tunnels to the left scrotum however most of the induration of the scrotum was unchanged with the evacuation of clot. The cavity was irrigated with saline. There was noted to be some small amount of oozing of the tissue, electrocautery was used. Anila was also placed. 15 Palestinian ANGELA was placed in the left groin which did down towards the scrotum with the drain. Drain was sutured in place with 3-0 nylon and incision was closed with subdermal sutures of 2-0 Vicryl and skin was closed with a running suture of 4-0 Monocryl. Dermabond was placed over the incision. ABD and drain sponge were placed over the incision. Patient tolerated procedure well was taken to in stable condition. Complications none
--- NOTE | 2020-10-03 12:42 | SUR.PHASEII ---
Patient in Phase 2 while awaiting a bed. No time in PACU.
[2020-10-03 12:44] VITALS: BP 149/75; PULSE 90; RESP 16; TEMP 36.8; O2SAT 95
[2020-10-03 12:45] VITALS: BP 149/75; PULSE 90; RESP 16; TEMP 37.1; O2SAT 95
--- NOTE | 2020-10-03 12:48 | EX.PCM.DISCH ---
Discharge Instructions Diet Discharge Diet: No restrictions Activity Discharge Activity: May Not Shower (until ANGELA removed) Dressing / Incision Call your doctor if your incision/area has: Continuous Slow Oozing, Sudden Increased Bleeding, Increased Pain/ Swelling, Increased Redness, Foul Smelling Discharge and Swelling at the incision site Call your doctor if you observe: Fever of 101 or Higher Remove Dressing in: 1 day (change gauze at drain daily) Additional Dressing/Incision Instructions:: Strip ANGELA twice a day and record output and bring with to appt with Dr. Zacarias Follow Up Care Please Follow Up With: Devon Zacarias MD When: scheduled appointment on Tuesday Test Results: Test results from this visit will be discussed in further detail at your follow-up appointment, if applicable. Discharge Plan Admission Admit Date/Time: 10/03/20 12:19 Attending Provider: Marce Estrada Primary Care Provider: Rhona Goldman Discharge Orders/Prescriptions Prescriptions: Continued nortriptyline 25 mg Capsule 25 mg PO QHS RF: 0 tamsulosin 0.4 mg Capsule 0.4 mg PO QHS RF: 0 ascorbic acid (vitamin C) 100 mg Tablet 100 mg PO DAILY RF: 0 calcium carbonate-vitamin D2 600 mg calcium- 200 unit Tablet 1 tab PO DAILY RF: 0 olmesartan [Benicar] 40 mg Tablet 40 mg PO DAILY RF: 0 rosuvastatin 20 mg Tablet 20 mg PO DAILY RF: 0 flaxseed 1,000 mg Capsule 1,000 mg PO DAILY RF: 0 acetaminophen [Tylenol] 325 mg Tablet 650 mg PO Q4H PRN PRN (Reason: pain and/or fever) Qty: 0 RF: 0 Held aspirin 81 mg Tablet 81 mg PO DAILY RF: 0 Hold Instructions: until seen by Dr. Zacarias omega 1-gny-fir-fish oil [Fish Oil] 1,200 (144-216) mg Capsule 1 cap PO DAILY RF: 0 Hold Instructions: until seen by Dr. Zacarias aspirin 81 mg Tablet,Delayed Release (Dr/Ec) 81 mg PO BREAKFAST Qty: 0 RF: 0 Hold Instructions: until seen by Dr. Zacarias Referrals / Follow Up: Rhona Goldman, [Primary Care Provider] - Disposition Disposition (needs filled in before D/C Order can be placed): Home, Self Care
[2020-10-03 13:32] VITALS: BP 149/64; PULSE 96; RESP 18; TEMP 37; O2SAT 96
[2020-10-03 13:46] VITALS: BMI 25.8
[2020-10-03 14:03] LABS: Absolute Lymphocyte Count 0.96 X10^3/uL (0.83-4.51); Absolute Neutrophil Count 8.9 X10^3/uL (2.0-7.7); Basophil# 0.02 X10^3/uL; Basophil% 0.2 % (0-1); Eosinophil# 0.04 X10^3/uL; Eosinophils% 0.4 % (0-5); Hematocrit 25.4 % (40-54); Hemoglobin 8.6 g/dL (13.0-16.5); Lymphocyte # 0.96 X10^3/ul (0.83-4.51); Lymphocyte % 8.8 % (19-41); Mean Corp Hgb Conc 33.9 g/dL (32-36); Mean Corpuscular Hgb 29.9 pg (27.0-32.0); Mean Corpuscular Volume 88.2 fL (80-94); Mean Platelet Vol. 9.1 fl (6.2-12.0); Monocyte# 0.87 X10^3/uL; NRBC Flagged by Analyzer 0 % (0-5); Neutrophil # 8.89 X10^3/uL (2.7-7.7); Platelet Count 505 K/mm3 (150-450); RBC Distribution Width CV 13.6 % (11.6-14.6); RBC Distribution Width SD 44.1 fl (35.1-43.9); Red Blood Count 2.88 M/mm3 (4.6-6.2); White Blood Count 10.9 K/mm3 (4.4-11.0)
[2020-10-03 17:37] VITALS: BP 144/78; PULSE 94; RESP 18; TEMP 36.9; O2SAT 98
[2020-10-03 20:49] VITALS: BP 138/64; PULSE 89; RESP 18; TEMP 36.9; O2SAT 95
[2020-10-03] MEDS: Nortriptyline 25 MG Capsule PO (20:55)
[2020-10-03] MEDS: Tamsulosin HCl 0.4 MG Capsule PO (20:55)
[2020-10-03] MEDS: Atorvastatin Calcium 40 MG Tablet PO (20:55)
[2020-10-04 07:49] VITALS: BP 141/67; PULSE 85; RESP 16; TEMP 36.9; O2SAT 97
[2020-10-04] MEDS: Calcium Carb/Vitamin D 1 TABLET Tablet PO (08:00)
[2020-10-04] MEDS: Losartan Potassium 100 MG Tablet PO (08:01)
--- NOTE | 2020-10-04 10:30 | PCM.PN.SRG ---
Subjective Subjective Patient feels improved. Passing flatus. Objective Data Objective Data Drain is in place minimal amounts coming out. Still significant swelling within the scrotal area. Vital Signs: Vital Signs Temp Pulse Resp BP Pulse Ox 98.4 F 85 16 141/67 H 97 10/04/20 07:49 10/04/20 07:49 10/04/20 07:49 10/04/20 07:49 10/04/20 07:49 Oxygen Delivery Method Room Air Weight: 180 lb Body Mass Index (BMI) 25.8 Intake & Output: Intake and Output for Last 24 Hours 10/02/20 10/03/20 10/04/20 23:59 23:59 23:59 Intake Total 1111.67 / 1111.67 Output Total 420 / 420 1030 / 1030 Balance 691.67 / 691.67 -1030 / -1030 Lab / Micro Data Result Diagrams: 10/03/20 13:40 Labs: Laboratory Results - last 24 hr 10/03/20 13:40: WBC 10.9, RBC 2.88 L, Hgb 8.6 L, Hct 25.4 L, MCV 88.2, MCH 29.9, MCHC 33.9, RDW Std Deviation 44.1 H, RDW Coeff of Lynette 13.6, Plt Count 505 H, MPV 9.1, Immature Gran % (Auto) 0.600, Neut % (Auto) 82.0 H, Lymph % (Auto) 8.8 L, Stephenson % (Auto) 8.0, Eos % (Auto) 0.4, Baso % (Auto) 0.2, Absolute Neuts (auto) 8.9 H, Absolute Lymphs (auto) 0.96, Nucleated RBC % 0 Assessment & Plan Assessment/Plan (1) Hematoma: PLAN: We will discharge home today. Will place him on antibiotics.
--- NOTE | 2020-10-04 11:18 | NURSING ---
brought in Cefdinir bottle and asked if Power should continue to keep taking it. Dr. Cade is on the floor and this nurse asked Dr. Cade. Dr. Cade stated he can finish the bottle (that was just refilled by ) and take the Cefdinir instead of the Cipro as prescribed and that will not have to belt picker new prescription for Cipro and to follow up with Dr. Zacarias.
[2020-10-04 12:00] VITALS: BP 146/76; PULSE 82; RESP 18; TEMP 36.9; O2SAT 94
== END 2020-10-04 12:56 | disposition home or self-care (01) ==
LOC: SDC 12:54 → MS3 12:54
PROVIDERS: Admitting Provider Surgery; PCP Internal Medicine; Referring Provider Surgery; Visit Provider Surgery
PROC: (CPT 10140; principal; 2020-10-03 10:50)
DX: S30.1XXA Contusion of abdominal wall, initial encounter (principal); Y84.8 Other medical procedures as the cause of abnormal reaction of the patient, or of later complication, without mention of misadventure at the time of the procedure
CPT/HCPCS: 10140; 36415; 85025; 96360; 96361; 99218; J7120; G0378; G0379

== ENCOUNTER 2020-10-13 10:14 | Day surgery (SDC) | payer MEDICARE, OTHER, SELFPAY ==
[2020-10-13] VITALS (7 sets, daily range): BP systolic 145–165; BP diastolic 80–86; PULSE 84–93; RESP 16; TEMP 36.2–36.9; O2SAT 85–98; BMI 52.5
--- NOTE | 2020-10-13 10:15 | CT_ITS ---
STUDY: CT PELVIS WITHOUT CONTRAST REASON FOR EXAM: Male, 85 years old. hematoma groin RADIATION DOSAGE (If Supplied By Facility): CTDIvol = ( 25.12 ) mGy, DLP = ( 1126.45 ) mGycm TECHNIQUE: Transaxial imaging of the pelvis was performed with oral contrast, and without intravenous administration of contrast material. Individualized dose optimization techniques were used for this CT. COMPARISON: CT abdomen and pelvis 09/18/2020. FINDINGS: Normal urinary bladder. There is prostatomegaly. Normal visualized small intestine. Normal visualized colon. There is no pelvic fluid. There is mild left pelvic wall adenopathy. 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 There is small fat-containing right inguinal hernia. There is a moderate fat-containing left inguinal hernia. There is a large multiloculated collection with thick peripheral enhancement and containing locules of air in the left anterior pelvic wall extending into the left scrotum. This multiloculated collection measures approximately 10.2 x 11.3 x 16 cm. There is marked surrounding left scrotal wall thickening and edema. There is large left scrotal hydrocele. There is right-sided mass effect on the penis and there is apparent infiltration of the distal penis where there is loss of the normal architecture. There is a stable sclerotic lesion in the left iliac bone which may represent bone island. CT/Pelvis without IV Contrast IMPRESSION: 1. There is a large, multiloculated left anterior pelvic wall abscess extending into and markedly enlarging the left scrotum. There is right-sided mass effect on the penis and apparent infiltration of the distal penis where there is loss of the normal architecture. 2. Prostatomegaly. Electronically Signed: Gricelda Manning MD at 11:49 EDT Tel , Service support ,
--- NOTE | 2020-10-13 12:32 | HP.PCM_ITS ---
History and Physical Date of Admission: 10/13/20 Intake Intake Visit Reasons: f/u left inguinal hernia repair and evacuation Chief Complaint: f/u evacuation of hematoma left groin Allergies No Known Allergies Allergy (Verified 10/13/20 09:44) Medications ascorbic acid (vitamin C) 100 mg PO DAILY 09/18/20 [History Confirmed 10/13/20] aspirin 81 mg PO DAILY 09/18/20 [History Confirmed 10/13/20] calcium carbonate-vitamin D2 1 tab PO DAILY 09/18/20 [History Confirmed 10/13/20] flaxseed 1,000 mg PO DAILY 09/18/20 [History Confirmed 10/13/20] nortriptyline 25 mg PO QHS 09/18/20 [History Confirmed 10/13/20] olmesartan [Benicar] 40 mg PO DAILY 09/18/20 [History Confirmed 10/13/20] omega 9-sxv-oio-fish oil [Fish Oil] 1 cap PO DAILY 09/18/20 [History Confirmed 10/13/20] rosuvastatin 20 mg PO DAILY 09/18/20 [History Confirmed 10/13/20] tamsulosin 0.4 mg PO QHS 09/18/20 [History Confirmed 10/13/20] acetaminophen [Tylenol] 650 mg PO Q4H PRN PRN #0 tab 09/21/20 [Rx Confirmed 10/13/20] aspirin 81 mg PO BREAKFAST #0 tab 09/21/20 [Rx Confirmed 10/13/20] PFSH Medical History Hematoma High cholesterol History of intestinal obstruction History of spontaneous rupture of esophagus Hypertension Left inguinal hernia Surgical History History of appendectomy History of hernia repair History of left inguinal hernia repair (~09/2020) S/P left inguinal hernia repair (~09/2020) Social History Smoking Status: Former smoker HPI HPI HPI: KRISTIN GORMAN, is a 85 M who presents to the office today for follow- up. Patient is still having significant swelling in the left scrotum. He is also having some drainage from his incision. No nausea or vomiting and the patient is having normal bowel movements. ROS General General: No weight change or fatigue HEENT HEENT: No difficulty swallowing Endo Endocrine: No thyroid disease Musc Musculoskeletal: No back problems or arthritis Cardio Cardiovascular: No pacemaker, heart disease, atrial fibrillation, high blood pressure, heart attack, heart stent, palpitations or chest pain Psych Psychiatric: No depression or anxiety Resp Respiratory: No shortness of breath, No cough, No COPD, No asthma and No emphysema Gastro Gastrointestinal: No abdominal pain, No nausea or vomiting, No diarrhea, No constipation, No blood in stool, No acid reflux, No hemorrhoids, No ulcers, No gallbladder problem and No black,tarry stools Additional Details: Significant left scrotal swelling after surgery Peter Hematologic: No blood thinners Exam Const General: cooperative Orientation: alert and oriented x3 HENMT Head: normal to inspection Neck Neck: normal visual inspection and full ROM Chest Chest palpation & inspection: normal inspection of the chest Resp Effort & Inspection: normal respiratory effort Auscultation: clear to auscultation bilaterally Cardio Rate: regular rate Rhythm: regular rhythm GI Inspection: non-distended Palpation: soft and nontender Other: Serous drainage from his incision in the left groin. The left scrotum is very swollen and tense with no erythema. Skin General: no rashes or lesions noted Neuro General: patient alert and patient oriented x3 Extrem General: full ROM Psych Appearance: grossly normal Mental Status: mental status grossly normal Assessment and Plan Assessment and Plan (1) Left inguinal hernia: Status: Resolved Plan: The patient had an extremely large left inguinal hernia repaired and the patient had subsequent hematoma formation in the left subcutaneous tissue. The patient was seen today and still has a large amount of swelling the left scrotum and left groin. I sent him for CT scan which shows fluid in the scrotum and in the subcutaneous tissue under the groin. I discussed this with the patient and the patient's over the phone after the visit. I gave him the options of con tinued observation or needle aspiration or return to surgery to remove all the fluid and place a drain deep into the scrotum. Patient would like surgical drainage. I discussed the risks of the procedure including wound to bleeding, infection, infection of mesh, injury to spermatic cord or testicle. The patient understands the risks and is willing proceed. Plan to take the patient this afternoon for incision and drainage and placement of a deep scrotal drain. Devon Zacarias MD Pager: [facility] [address] [place] [address], [address] [place] [address] Office:
[2020-10-13] MEDS: Lactated Ringers 1,000 ML 100 ML IV (12:40)
[2020-10-13] MEDS: Cefotetan 2 GM in 0.9% NS 100 ML IV (13:53)
[2020-10-13] MEDS: Bupivacaine Mpf 0.5% 30 ML VIAL (14:26)
[2020-10-13] MEDS: Lidocaine 1% /Epi 1:100 (20ml) 20 ML Vial (14:26)
--- NOTE | 2020-10-13 14:42 | PCM.OPRPT ---
Problems Associated Problem List Diagnoses (1) Seroma after procedure: Report of Operation Date of Procedure: 10/13/20 Pre-Operative Diagnosis: Postoperative seroma Post-Operative Diagnosis: Same Surgery/Procedure Performed:: Incision and drainage of left inguinal postoperative seroma with placement of drain Drains: ANGELA to bulb suction Description of Procedure: Patient was brought back to the operating room and MAC anesthesia was induced. The scrotum and left inguinal region were prepped and draped in usual sterile fashion. The prior incision was injected with local anesthetic and incised. There was a clear fluid expressed and suction. The suction device was placed into the subcutaneous tissue and down into the scrotum. 220 cc of clear fluid was aspirated. There was no purulent material or blood clot. Ultrasound was used to ensure that all the fluid was adequately drained and then a 15 Greenlandic round drain was placed through the skin superior to the old incision and down into the scrotum. He was sutured the skin using 3-0 nylon suture. The incision was then irrigated and suctioned dry as well as the scrotum. The skin incision was then closed with interrupted 3-0 nylon sutures. Dressing and suture sponge were applied and the drain was placed to bulb suction. Patient tolerated the procedure well. Admit VTE Documentation VTE Mechan Device Prophylaxis: SCD's
--- NOTE | 2020-10-13 14:44 | EX.PCM.DISCH ---
Discharge Instructions Diet Discharge Diet: No restrictions Activity Discharge Activity: Return to Normal Activity Dressing / Incision Call your doctor if your incision/area has: Continuous Slow Oozing, Sudden Increased Bleeding, Increased Pain/ Swelling, Increased Redness, Foul Smelling Discharge and Swelling at the incision site Call your doctor if you observe: Fever of 101 or Higher Drain: Suction (empty when half full and record daily output, change dressings as needed.) Follow Up Care Please Follow Up With: Devon Zacarias MD When: Please call to schedule 1 week follow up appointment. [phone] Test Results: Test results from this visit will be discussed in further detail at your follow-up appointment, if applicable. Discharge Plan Admission Attending Provider: Devon Zacarias Primary Care Provider: Rhona Goldman Discharge Orders/Prescriptions Prescriptions: No Action nortriptyline 25 mg Capsule 25 mg PO QHS RF: 0 tamsulosin 0.4 mg Capsule 0.4 mg PO QHS RF: 0 ascorbic acid (vitamin C) 100 mg Tablet 100 mg PO DAILY RF: 0 aspirin 81 mg Tablet 81 mg PO DAILY RF: 0 Hold Instructions: until seen by Dr. Zacarias calcium carbonate-vitamin D2 600 mg calcium- 200 unit Tablet 1 tab PO DAILY RF: 0 olmesartan [Benicar] 40 mg Tablet 40 mg PO DAILY RF: 0 rosuvastatin 20 mg Tablet 20 mg PO DAILY RF: 0 omega 1-wcc-bph-fish oil [Fish Oil] 1,200 (144-216) mg Capsule 1 cap PO DAILY RF: 0 Hold Instructions: until seen by Dr. Zacarias flaxseed 1,000 mg Capsule 1,000 mg PO DAILY RF: 0 acetaminophen [Tylenol] 325 mg Tablet 650 mg PO Q4H PRN PRN (Reason: pain and/or fever) Qty: 0 RF: 0 aspirin 81 mg Tablet,Delayed Release (Dr/Ec) 81 mg PO BREAKFAST Qty: 0 RF: 0 Hold Instructions: until seen by Dr. Zacarisa Referrals / Follow Up: Rhona Goldman DO [Primary Care Provider] - Disposition Disposition (needs filled in before D/C Order can be placed): Home, Self Care
== END 2020-10-13 16:32 | disposition home or self-care (01) ==
LOC: CT 10:33 → SDC 12:02 → AC 12:03
PROVIDERS: PCP Internal Medicine; Referring Provider Surgery; Visit Provider Surgery
PROC: (CPT 10140; principal; 2020-10-13 14:30)
DX: L76.34 Postprocedural seroma of skin and subcutaneous tissue following other procedure (principal); Y83.8 Other surgical procedures as the cause of abnormal reaction of the patient, or of later complication, without mention of misadventure at the time of the procedure; K40.90 Unilateral inguinal hernia, without obstruction or gangrene, not specified as recurrent; N40.0 Benign prostatic hyperplasia without lower urinary tract symptoms; I10 Essential (primary) hypertension; E78.00 Pure hypercholesterolemia, unspecified; Z87.19 Personal history of other diseases of the digestive system; Z79.82 Long term (current) use of aspirin; Z79.899 Other long term (current) drug therapy; Z87.891 Personal history of nicotine dependence
CPT/HCPCS: 10140; 72192; J7120

== ENCOUNTER 2022-02-20 09:32 | Emergency (ER) | payer MEDICARE, OTHER, SELFPAY ==
[2022-02-20 09:32] VITALS: BP 200/109; PULSE 93; RESP 16; TEMP 36.3; O2SAT 97; BMI 25.1
--- NOTE | 2022-02-20 10:23 | EDS_ITS ---
HPI History of Present Illness Chief Complaint: Nosebleed Detail of Chief Complaint: Left-sided nosebleed that started around 9 AM Informant: patient Narrative Narrative: Patient presents the emergency department complaint of left-sided nosebleed that started around 9 AM. Patient states it started spontaneously. Patient has been using saline flushes in his nose because of a head cold that he has had for some time since . Patient feels like he is gotten better. He is not on blood thinners although he does take aspirin. Patient does not get frequent nosebleeds his last one was many years ago. [facility] Medical History Hematoma High cholesterol History of intestinal obstruction History of spontaneous rupture of esophagus Hypertension Left inguinal hernia Home Medications ascorbic acid (vitamin C) 100 mg tablet 100 mg PO DAILY 09/18/20 [History Last Taken 10/03/20] aspirin 81 mg tablet 81 mg PO DAILY 09/18/20 [History Last Taken Unknown] calcium carb-ergocalciferol (vit D2) 600 mg calcium-200 unit tablet 1 tab PO DAILY 09/18/20 [History Last Taken 10/03/20] flaxseed 1,000 mg capsule 1,000 mg PO DAILY 09/18/20 [History Last Taken 10/13/20] nortriptyline 25 mg capsule 25 mg PO QHS 09/18/20 [History Last Taken Unknown] olmesartan 40 mg tablet (Benicar) 40 mg PO DAILY 09/18/20 [History Last Taken 10/13/20] omega 0-amc-lnz-fish oil 1,200 mg (144 mg-216 mg) capsule (Fish Oil) 1 cap PO DAILY 09/18/20 [History Last Taken Unknown] rosuvastatin 20 mg tablet 20 mg PO DAILY 09/18/20 [History Last Taken 10/03/20] tamsulosin 0.4 mg capsule 0.4 mg PO QHS 09/18/20 [History Last Taken Unknown] acetaminophen 325 mg tablet (Tylenol) 650 mg PO Q4H PRN PRN pain and/or fever #0 tabs 09/21/20 [Rx Last Taken Unknown] Allergy/AdvReac Type Severity Reaction Status Date / Time No Known Allergies Allergy Verified 02/20/22 09:35 Surgical History History of appendectomy History of hernia repair History of left inguinal hernia repair (~09/2020) S/P left inguinal hernia repair (~09/2020) Social History Smoking Status: Former smoker ROS ROS ED Review of Systems ROS Unobtainable: other Constitutional Constitutional ED: Reports lethargy; Denies chills, fever(s), sweats or weight loss Eyes Eyes: Denies blurry vision, change in vision or diplopia ENT ENT ED: Reports rhinorrhea, sore throat and other Details: Left-sided nosebleed Cardiovascular Cardiovascular: Denies chest pain, orthopnea or racing heartbeat Respiratory/Chest Respiratory/Chest: Denies cough, dyspnea, dyspnea on exertion, orthopnea or sputum Gastrointestinal Gastrointestinal: Denies abdominal pain, diarrhea, nausea or vomiting Genitourinary Genitourinary ED: Denies dysuria, hematuria or urinary frequency Musculoskeletal Musculoskeletal: Denies arthralgias, back pain, myalgias or neck pain Integumentary Denies abscess, Abrasions or rash Neurologic Neurologic: Denies headache(s) or weakness Psychiatric Psychiatric: Denies anxiety, depression or suicidal thoughts Endocrine Endocrinology: Denies polydipsia, polyphagia or polyuria Hematologic/Lymphatic Hematologic/Lymphatic: Denies easy bleeding, easy bruising or lymphadenopathy Allergic/Immunologic Allergic/Immunologic ED: Denies mouth swelling, tongue swelling or urticaria EXAM Physical Exam Const Vital Signs: 02/20/22 09:32 02/20/22 11:01 Temperature 97.4 F L Temperature Source Temporal Pulse Rate 93 Respiratory Rate 16 Blood Pressure 200/109 H 214/104 H Blood Pressure Mean 139 140 Pulse Ox 97 Oxygen Delivery Method Room Air Positive well nourished and well developed General Appearance ED: well developed and NAD HEENT Reports TM's clear and moist mucous membranes HEENT Narrative: Patient has dry clot in the left nasal vault as nursing staff had applied a nasal clip to the nose. Initially unable to visualize area of bleeding. No significant active bleeding at this time. There is no blood on the oropharynx. normocephalic and atraumatic; Negative for trauma or tenderness Tympanic Membrane ED: Yes TM's clear Eyes PERRL and EOMs intact bilaterally General Eye ED: Negative for pale conjunctiva or scleral icterus Neck no lymphadenopathy, supple and no JVD General: Negative for tenderness Chest Wall inspection of chest normal and palpation of chest normal Chest: Negative for tenderness Resp normal respiratory effort and clear to auscultation bilaterally Effort and Inspection: Negative for respiratory distress or pain with movement Auscultation: Negative for rhonchi, wheezes or diminished lung sounds Cardio regular rate, regular rhythm, S1 normal heart sound, S2 normal heart sound and no murmurs Peripheral Pulses: pulses 2+ throughout GI normal to inspection, nondistended, normoactive bowel sounds, soft to palpation, non-tender, non-distended and no masses Back/Spine no CVA tenderness and no thoracic nor lumbar tenderness Extremity normal to inspection General Extremety ED: Negative for edema General Extremity: Negative for edema Neuro oriented x3, CN's II-XII intact bilaterally, no sensory deficits noted and gait normal Sensorium / Orientation: awake, alert, oriented to person, oriented to place and oriented to time Motor Exam: strength 5/5 throughout and strength abnormal Psych mental status grossly normal Skin no rashes or lesions noted and no wounds MDM MDM MDM Narrative Medical decision making narrative: I was able to remove the large clot from the left side of the nose. I was able to inspect the septum and it was noted that he had an exposed vessel that I suspect was the source of the bleeding. I did use silver nitrate cautery to cauterize the blood vessel. Patient will be observed for further bleeding. Patient had no further bleeding from his nose. He was ambulated in the department and did well. He does have elevated blood pressure but he and his both tell me that he has severe whitecoat syndrome and he is asymptomatic. He did take his blood pressure medicine this morning. Patient advised to follow-up with ENT within next 3 to 5 days. Patient advised to hold constant pressure for 20 minutes at the no starts to bleed again and if it does not stop the bleeding to return to the ER. Patient advised not to blow his nose or pick at his nose or irrigate the nose. Discharge Plan Triage Chief Complaint: Nosebleed ED Provider: Isai Neal Dx/Rx/DC Orders Clinical Impression: Acute anterior epistaxis Instructions: ED Epistaxis (Adult) Prescriptions: No Action nortriptyline 25 mg Capsule 25 mg PO QHS tamsulosin 0.4 mg Capsule 0.4 mg PO QHS ascorbic acid (vitamin C) 100 mg Tablet 100 mg PO DAILY aspirin 81 mg Tablet 81 mg PO DAILY Hold Instructions: until seen by Dr. Zacarias calcium carbonate-vitamin D2 600 mg calcium- 200 unit Tablet 1 tab PO DAILY olmesartan [Benicar] 40 mg Tablet 40 mg PO DAILY rosuvastatin 20 mg Tablet 20 mg PO DAILY omega 9-zop-wyw-fish oil [Fish Oil] 1,200 (144-216) mg Capsule 1 cap PO DAILY Hold Instructions: until seen by Dr. Zacarias flaxseed 1,000 mg Capsule 1,000 mg PO DAILY acetaminophen [Tylenol] 325 mg Tablet 650 mg PO Q4H PRN PRN (Reason: pain and/or fever) Qty: 0 0RF Primary Care Provider: Rhona Goldman Referrals: Patrick Butcher MD [Med Staff - Active Staff] - 3-5 Days Rhona Goldman DO [Primary Care Provider] - Disposition Disposition: Home, Self Care
[2022-02-20] MEDS: Silver Nitrate (BKC) 2 EACH TOPICAL (10:53)
[2022-02-20 11:01] VITALS: BP 214/104
[2022-02-20 11:25] VITALS: BP 183/98
== END 2022-02-20 11:26 | disposition home or self-care (01) ==
PROVIDERS: Emergency Provider Emergency Medicine; PCP Internal Medicine; Visit Provider Emergency Medicine
DX: R04.0 Epistaxis (principal); E78.00 Pure hypercholesterolemia, unspecified; I10 Essential (primary) hypertension; Z87.891 Personal history of nicotine dependence
CPT/HCPCS: 30901; 99282

== ENCOUNTER → 2025-02-18 | Outpatient (CLI) | payer MEDICARE, OTHER, SELFPAY ==
[2025-02-19 17:08] LABS: PSA, Free 1.05 ng/mL; PSA, Free % 25.6 % (.); PSA, Total 4.1 ng/mL (0.0-4.0)
== END | disposition home or self-care (01) ==
LOC: CIMLAB 08:04
PROVIDERS: PCP Internal Medicine; Referring Provider Internal Medicine; Visit Provider Internal Medicine
DX: Z12.5 Encounter for screening for malignant neoplasm of prostate (principal)
CPT/HCPCS: 36415; 84153